=== PATIENT | female | born 1990 | race Caucasian/White ===

== ENCOUNTER 2016-09-15 11:08 | Emergency (ER) | payer SELFPAY ==
[2016-09-15] MEDS ORDERED: guaiFENesin ER TAB 600 MG PO ONE (11:35)
[2016-09-15] MEDS ORDERED: NS 0.9% 1000 ML* 1,000 ML IV ONE (11:35)
[2016-09-15] MEDS ORDERED: Ondansetron INJ* 2 MG/ML VIAL IV ONE (11:46)
[2016-09-15 11:57] LABS: Hematocrit 44 % (35-47); Hemoglobin 14.6 g/dl (12.0-16.0); Mean Corpuscular HGB Conc 34 g/dl (31-36); Mean Corpuscular Hemoglobin 31 pg (27-31); Mean Corpuscular Volume 92 fL (80-97); Mean Platelet Volume 10 um3 (7.4-10.4); Red Blood Count 4.74 10^6/ul (4.0-5.4); Red Cell Distribution Width 12 % (10.5-15); White Blood Count 7.2 10^3/ul (3.5-10.8)
[2016-09-15 12:11] LABS: Albumin 4.3 g/dL (3.2-5.2); BUN/Creatinine Ratio 13.8 (8-20); C Reactive Protein 11.53 mg/L (< 5.00); Calcium 9.7 mg/dL (8.6-10.3); EGFR African American 109.8 (>60); EGFR Non-African American 85.4 (>60); Globulin 3.6 g/dL (2-4); Potassium 4.1 mmol/L (3.5-5.0); Total Bilirubin 0.5 mg/dL (0.2-1.0); Total Protein 7.9 g/dL (6.4-8.9)
--- NOTE | 2016-09-15 12:23 | RAD ---
HISTORY: Cough and fever COMPARISONS: None VIEWS: 2: Frontal dual-energy and lateral views of the chest. FINDINGS: CARDIOMEDIASTINAL SILHOUETTE: The cardiomediastinal silhouette is normal. ELIZABETH: The elizabeth are normal. PLEURA: The costophrenic angles are sharp. No pleural abnormalities are noted. LUNG PARENCHYMA: The lungs are clear. ABDOMEN: The upper abdomen is clear. There is no subphrenic gas. BONES AND SOFT TISSUES: No bone or soft tissue abnormalities are noted. OTHER: None. IMPRESSION: NO ACTIVE CARDIOPULMONARY DISEASE.
[2016-09-15 13:03] LABS: Urine Bilirubin Negative (Negative); Urine Glucose Negative (Negative); Urine Nitrite Negative (Negative)
[2016-09-15 13:22] VITALS: BP 118/63
--- NOTE | 2016-09-15 13:51 | ED ---
osmany Perales Timothy, scribed for Waylon Real MD on 09/15/16 at 1135 . Shortness of Breath - HPI Summary HPI Summary: Teetee Kelley is a 26 yo female presenting to [facility] with gradual onset SOB and productive cough with yellow, blood tinged sputum for the past week. She states she now has chest congestion with subjective fever and 6/10 sore throat. She also c/o some nasal discharge, and a loss of appetite. She states she had neck soreness for the first few days, but this has resolved.Her MHx includes pneumonia and tubal ligation. She states she is late for her menstrual period, but that it has been irregular since her tubal ligation. - History of Current Complaint Time Seen by Provider: 09/15/16 11:30 Onset/Duration: Gradual Onset, Lasting Days, Still Present Timing: Constant Current Severity: Moderate Dyspnea At: Rest Associated Signs & Symptoms: Cough (Bloody Sputum), Fever - sujective - Allergy/Home Medications Allergies/Adverse Reactions: Allergies Allergy/AdvReac Type Severity Reaction Status Date / Time No Known Allergies Allergy Verified 09/15/16 11:38 PMH/Surg Hx/FS Hx/Imm Hx - Surgical History Surgery Procedure, Year, and Place: tubal ligation Infectious Disease History: No Infectious Disease History: Denies: Traveled Outside the [place] in Last 30 Days - Family History Known Family History: Positive: None Negative: Cardiac Disease, Hypertension, Diabetes - Social History Alcohol Use: Rare Substance Use Type: Reports: None Smoking Status (MU): Never Smoked Tobacco Review of Systems Positive: Fever - subjective Eyes: Negative ENT: Other - neck pain Positive: Sore Throat, Nasal Discharge Cardiovascular: Other - chest congestion Positive: Shortness Of Breath, Cough - productive bloody sputum Gastrointestinal: Other - loss of appetite Genitourinary: Negative Musculoskeletal: Negative Skin: Negative Neurological: Negative Psychological: Normal All Other Systems Reviewed And Are Negative: Yes Physical Exam - Summary Physical Exam Summary: Vital signs: Reviewed Gen.: Patient is a well-developed and nourished female in no acute distress. Patient is lying comfortably on the stretcher. Head: Normacephalic and atraumatic. No sinus tenderness Eyes: PERRLA, EOMI x2. Ears: Right and Left ear canal and TM WNL Nose and mouth: Positive nasal musocsa erythema. Positive pharyngeal erythema Neck: Supple, no lymphadenopathy, no JVD Lungs: CTA B/L CVS: S1 & S2 present. No murmurs appreciated. ABDOMEN: Soft, non-tender. No signs of distention. No rebound no guarding, and no masses palpated. Bowel sounds are normal. EXTREMITIES: FROM in all major joints, no edema, no cyanosis or clubbing. NEURO: Alert and oriented x 3. No acute neurological deficits. Speech is normal and follows commands. SKIN: Dry and warm Triage Information Reviewed: Yes Vital Signs On Initial Exam: Initial Vitals Temp Pulse Resp BP Pulse Ox 99.6 F 79 20 116/80 100 09/15/16 11:10 09/15/16 11:10 09/15/16 11:10 09/15/16 11:10 09/15/16 11:10 Vital Signs Reviewed: Yes Diagnostics - Vital Signs Vital Signs Temp Pulse Resp BP Pulse Ox 09/15/16 11:27 98.8 F 77 22 114/65 100 09/15/16 11:10 99.6 F 79 20 116/80 100 - Laboratory Lab Results: Lab Results 09/15/16 Range/Units 11:45 WBC 7.2 (3.5-10.8) 10^3/ul RBC 4.74 (4.0-5.4) 10^6/ul Hgb 14.6 (12.0-16.0) g/dl Hct 44 (35-47) % MCV 92 (80-97) fL MCH 31 (27-31) pg MCHC 34 (31-36) g/dl RDW 12 (10.5-15) % Plt Count 209 (150-450) 10^3/ul MPV 10 (7.4-10.4) um3 Neut % (Auto) 60.4 (38-83) % Lymph % (Auto) 28.7 (25-47) % [place] % (Auto) 8.4 (1-9) % Eos % (Auto) 1.5 (0-6) % Baso % (Auto) 1.0 (0-2) % Absolute Neuts (auto) 4.3 (1.5-7.7) 10^3/ul Absolute Lymphs (auto) 2.1 (1.0-4.8) 10^3/ul Absolute Monos (auto) 0.6 (0-0.8) 10^3/ul Absolute Eos (auto) 0.1 (0-0.6) 10^3/ul Absolute Basos (auto) 0.1 (0-0.2) 10^3/ul Absolute Nucleated RBC 0 10^3/ul Nucleated RBC % 0 Result Diagrams: 09/15/16 11:45 09/15/16 11:45 Lab Statement: Any lab studies that have been ordered have been reviewed, and results considered in the medical decision making process. - Radiology CXR Xray Interpretation: No Acute Changes - IMPRESSION: NO ACTIVE CARDIOPULMONARY DISEASE. Radiology Interpretation Completed By: Radiologist Re-Evaluation - Re-Evaluation First Eval Re-Evaluation Time: 13:07 Change: Unchanged Comment: Pt was informed of negative A & B flu tests, strep test, CXR. She is agreeable to current course of Tx. Course/Dx - Course Course Of Treatment: Teetee Kelley is a 26 yo female presenting to [facility] with shortness of breath and productive cough with yellow blood tinged sputum for the past week. After negative flu and strep tests, and negative CXR, she will be discharged home with viral syndrome and appropriate instructions. Assessment/Plan: Teetee Kelley is a 26 yo female presenting to [facility] with gradual onset SOB and productive cough with yellow, blood tinged sputum for the past week. She states she now has chest congestion with subjective fever and 6/ 10 sore throat. She also c/o some nasal discharge, and a loss of appetite. She states she had neck soreness for the first few days, but this has resolved.Her MHx includes pneumonia and tubal ligation. She states she is late for her menstrual period, but that it has been irregular since her tubal ligation. Blood work wnl except for chloride of 100 and CRP 11.5. CXR impression: No acute cardiopulmonary pathology. In the ED course she was given IVF and ZOfran for nausea. She was given Mucinex for cough. I believe her symptoms are related to a viral infection. Therefore she will be given mucinex and discharged home with f/u of PMD. I discussed all the findings and test results with the patient. Patient was instructed to return to the emergency room immediately if any of the symptoms return or worsens. Plan of care was discussed with the patient and understands and agrees. All questions were answered at patient satisfaction. There were no further complaints or concerns. Lung exam before discharge: CTA B/L. Good air exchange. No wheezing or crackles heard. CVS: S1 and S2 present. No murmurs appreciated. Patient is alert and oriented x 3. Patient is hemodynamically stable. Patient will be discharged home with follow up tank cleaner in the next 2-3 days - Diagnoses Differential Diagnosis/HQI/PQRI: Positive: Bronchitis, Chest Wall Pain, Pneumonia Provider Diagnoses: Viral syndrome, Cough Discharge - Discharge Plan Condition: Stable Disposition: HOME Prescriptions: Pseudoephedrine-Guaifenesin [Mucinex D 60-600 mg] 1 tab PO BID #10 tab Patient Education Materials: Viral Syndrome (ED) Forms: *Work Release Referrals: [facility] [Outside] - 2 Days Additional Instructions: Please follow up with the primary care physician provided regarding your visit to the emergency department today. Return to the emergency department with any new or recurring symptoms. The documentation as recorded by the osmany haas Timothy accurately reflects the service I personally performed and the decisions made by , Waylon Real MD.
== END 2016-09-15 13:16 | disposition home or self-care (01) ==
LOC: ED 11:08
DX: B34.9 Viral infection, unspecified (principal); R05 Cough; R50.9 Fever, unspecified; R06.02 Shortness of breath
CPT/HCPCS: 36415; 71020; 80053; 81003; 85025; 86140; 87502; 87651; 96374; 99283; A9270-GY; J2405

== ENCOUNTER 2016-10-10 12:42 | Emergency (ER) | payer SELFPAY ==
[2016-10-10] MEDS ORDERED: NS 0.9% 1000 ML* 1,000 ML IV ONE (13:56)
[2016-10-10] MEDS ORDERED: Dexamethasone IV* 4 MG/ML 1 ML (4 MG) IM ONE (13:56)
[2016-10-10] MEDS ORDERED: Morphine INJ* 2 MG/ML 1 ML SYRINGE IV ONE (14:04)
[2016-10-10] MEDS ORDERED: Ondansetron INJ* 2 MG/ML VIAL IV ONE (14:12)
[2016-10-10] MEDS ORDERED: Dexamethasone IV* 4 MG in NS 0.9% 50 ML* 50 ML IVPB ONE (14:16)
--- NOTE | 2016-10-10 14:35 | RAD ---
INDICATION: Wheezing, cold for 4 weeks. COMPARISON: Comparison is made with a prior chest x-ray study from September 15, 2016. TECHNIQUE: Dual-energy PA and lateral views of the chest were obtained. FINDINGS: The heart is within normal limits in size. Mediastinal and hilar contours appear within normal limits. The lungs are hyperinflated and clear. No pleural effusion is seen. IMPRESSION: NO EVIDENCE FOR ACTIVE CARDIOPULMONARY DISEASE.
[2016-10-10 14:53] LABS: Hematocrit 41 % (35-47); Hemoglobin 13.6 g/dl (12.0-16.0); Mean Corpuscular HGB Conc 33 g/dl (31-36); Mean Corpuscular Hemoglobin 31 pg (27-31); Mean Corpuscular Volume 92 fL (80-97); Mean Platelet Volume 10 um3 (7.4-10.4); Red Blood Count 4.44 10^6/ul (4.0-5.4); Red Cell Distribution Width 12 % (10.5-15)
[2016-10-10] MEDS ORDERED: Moxifloxacin 0.5% OPHTH(NF) 1 DROP OPHTH.SOLN BOTH EYES SCH (15:00)
[2016-10-10] MEDS ORDERED: Ciprofloxacin 0.3% OPTH.SOL* 2.5 ML BTL BOTH EYES ONE (15:04)
[2016-10-10 15:09] LABS: Albumin 4.1 g/dL (3.2-5.2); BUN/Creatinine Ratio 13.6 (8-20); C Reactive Protein 2.71 mg/L (< 5.00); Calcium 9.2 mg/dL (8.6-10.3); EGFR African American 108.3 (>60); EGFR Non-African American 84.2 (>60); Globulin 3.2 g/dL (2-4); Potassium 3.9 mmol/L (3.5-5.0); Total Bilirubin 0.6 mg/dL (0.2-1.0); Total Protein 7.3 g/dL (6.4-8.9)
--- NOTE | 2016-10-10 15:20 | ED ---
Throat Pain/Nasal Congestion - HPI Summary HPI Summary: Patient arrives to ED with CC of bilateral eye pain, copious mucopurulent discharge, cough, congestion x 2 weeks, [place], nausea and fatigue. She states she has been struggling with a URI for several weeks and yesterday developed discharge from eyes bilaterally. She also notes to some swelling around the orbit. She wore her contacts last evening which exacerbated the issue. She has been nauseous, but states this is likely d/t post nasal drainage. Cough is dry and causing [place]. She denies urinary sxs, back pain, neck pain, constipation or diarrhea. Denies vomiting. - History of Current Complaint Chief Complaint: EDEyeProblem Time Seen by Provider: 10/10/16 12:53 Hx Obtained From: Patient Onset/Duration: Gradual Onset Severity: Moderate Associated Signs And Symptoms: Positive: Wheezing, Hoarseness Cough: Nonproductive Related History: Seasonal Allergies - Epiglottits Risk Factors Epiglottis Risk Factors: Negative - Allergies/Home Medications Allergies/Adverse Reactions: Allergies Allergy/AdvReac Type Severity Reaction Status Date / Time No Known Allergies Allergy Verified 09/15/16 11:38 PMH/Surg Hx/FS Hx/Imm Hx Previously Healthy: Yes Cardiovascular History: Reports: Other Cardiovascular Problems/Disorders - MITRAL VALVE PROLAPSE - Surgical History Surgery Procedure, Year, and Place: tubal ligation Infectious Disease History: No Infectious Disease History: Denies: Traveled Outside the [place] in Last 30 Days - Family History Known Family History: Positive: None Negative: Cardiac Disease, Hypertension, Diabetes - Social History Occupation: Employed Full-time Lives: With Family Alcohol Use: Rare Hx Substance Use: No Substance Use Type: Reports: None Hx Tobacco Use: No Smoking Status (MU): Never Smoked Tobacco Review of Systems Positive: Fatigue Positive: Blurred Vision, Drainage - mucopurulent discharge Positive: Nasal Discharge Cardiovascular: Negative Positive: Shortness Of Breath, Cough Positive: Nausea Positive: no symptoms reported, see HPI Musculoskeletal: Negative Skin: Negative Positive: Headache, Weakness Psychological: Normal All Other Systems Reviewed And Are Negative: Yes Physical Exam Triage Information Reviewed: Yes Vital Signs On Initial Exam: Initial Vitals Temp Pulse Resp BP Pulse Ox 98.3 F 89 16 150/88 100 10/10/16 12:45 10/10/16 12:45 10/10/16 12:45 10/10/16 12:45 10/10/16 12:45 Vital Signs Reviewed: Yes Appearance: Positive: Well-Appearing, Well-Nourished Skin: Positive: Warm, Skin Color Reflects Adequate Perfusion Head/Face: Positive: Normal Head/Face Inspection Eyes: Positive: EOMI, Conjunctiva Inflammed, Discharge ENT: Positive: Pharynx normal, TMs normal Neck: Positive: Supple, No Lymphadenopathy Respiratory/Lung Sounds: Positive: Wheezes, Fatigue Cardiovascular: Positive: Normal, RRR, Pulses are Symmetrical in both Upper and Lower Extremities Musculoskeletal: Positive: Normal, Strength/ROM Intact Neurological: Positive: Normal, Sensory/Motor Intact, Alert, Oriented to Person Place, Time, Speech Normal Psychiatric: Positive: Normal AVPU Assessment: Alert - [place] Coma Scale Coma Scale Total: 15 Diagnostics - Vital Signs Vital Signs Temp Pulse Resp BP Pulse Ox 10/10/16 15:00 81 18 136/69 98 10/10/16 14:37 20 10/10/16 12:45 98.3 F 89 16 150/88 100 - Laboratory Lab Results: Lab Results 10/10/16 Range/Units 14:33 WBC 8.0 (3.5-10.8) 10^3/ul RBC 4.44 (4.0-5.4) 10^6/ul Hgb 13.6 (12.0-16.0) g/dl Hct 41 (35-47) % MCV 92 (80-97) fL MCH 31 (27-31) pg MCHC 33 (31-36) g/dl RDW 12 (10.5-15) % Plt Count 190 (150-450) 10^3/ul MPV 10 (7.4-10.4) um3 Neut % (Auto) 61.7 (38-83) % Lymph % (Auto) 29.6 (25-47) % [place] % (Auto) 6.9 (1-9) % Eos % (Auto) 0.9 (0-6) % Baso % (Auto) 0.9 (0-2) % Absolute Neuts (auto) 4.9 (1.5-7.7) 10^3/ul Absolute Lymphs (auto) 2.4 (1.0-4.8) 10^3/ul Absolute Monos (auto) 0.6 (0-0.8) 10^3/ul Absolute Eos (auto) 0.1 (0-0.6) 10^3/ul Absolute Basos (auto) 0.1 (0-0.2) 10^3/ul Absolute Nucleated RBC 0 10^3/ul Nucleated RBC % 0 Result Diagrams: 10/10/16 14:33 10/10/16 14:33 Lab Statement: Any lab studies that have been ordered have been reviewed, and results considered in the medical decision making process. EENT Course/Dx - Course Course Of Treatment: Chest Xray negative. Ciprofloxacin given for murcopurulent discharge bilaterally d/t recent contact usage while having bacterial conjunctivitis. Zofran given for nausea. Prednisone given for wheezing, cough and shortness of breath. Patient OK with plan and discharge. Educated patient on no contact use for 1 week or until healed. - Differential Diagnoses Differential Diagnoses: Conjunctivitis, Corneal Abrasion, Sinusitis, URI/ Bronchitis - Diagnoses Provider Diagnoses: CONJUNCTIVITIS Discharge - Discharge Plan Condition: Stable Disposition: HOME Prescriptions: Ciprofloxacin 0.3% OPTH.PATRICIA* [Cipro 0.3% Opth*] 1 drop BOTH EYES Q2H #1 btl Ondansetron ODT TAB* [Zofran 4 MG Odt TAB*] 4 mg PO Q6H PRN #12 tab.odt MDD 4 PRN Reason: Nausea predniSONE TAB* [Deltasone TAB*] 10 mg PO DAILY #17 tab Patient Education Materials: Conjunctivitis (ED) Referrals: No Primary Care Phys,NOPCP [Primary Care Provider] - Additional Instructions: Ciprofloxacin Drops in Both Eyes: 1 to 2 drops every 2 hours while awake, up to 8 times daily for 2 days; then 1 to 2 drops every 4 hours while awake, up to 6 times daily for 5 days Do not wear contacts for 7 days or until completely healed. Throw out current contacts. Prednisone 50mg on day 1, 40mg on day 2, 30mg on day 3, 20mg on day 4, 10mg daily until gone Zofran as needed for nausea. Push fluids. Tylenol as needed for discomfort.
[2016-10-10 15:42] VITALS: BP 115/62
== END 2016-10-10 15:41 | disposition home or self-care (01) ==
LOC: ED 12:42
DX: H10.9 Unspecified conjunctivitis (principal); R06.2 Wheezing; H53.8 Other visual disturbances; R06.02 Shortness of breath; R11.0 Nausea; R51 Headache
CPT/HCPCS: 36415; 71020; 80053; 85025; 86140; 99282; A9270-GY; J1100; J2270; J2405